=== PATIENT | female | born 1980 | race Caucasian/White ===

== ENCOUNTER 2018-04-02 09:48 | Emergency (ER) | payer OTHER ==
[~2018-04-02] VITALS: Ht 167.6 cm; Wt 92.0 kg
[2018-04-02 09:51] VITALS: BP 124/80
== END 2018-04-02 11:12 | disposition home or self-care (01) ==
LOC: ED 11:06
DX: J20.8 Acute bronchitis due to other specified organisms (principal); H65.03 Acute serous otitis media, bilateral; J00 Acute nasopharyngitis [common cold]
CPT/HCPCS: 71046; 93005; 99284